=== PATIENT | male | born 1960 | race Caucasian/White ===

== ENCOUNTER → 2018-03-16 14:14 | Outpatient (CLI) | payer OTHER, MEDICAID, SELFPAY ==
[2018-03-16 18:06] LABS: Alanine Aminotransferase 26 IU/L (21-72); Albumin 3.8 g/dL (3.5-5.0); Albumin Globulin Ratio 1.7 (1.0-2.8); Alkaline Phosphatase 64 U/L (38-126); Aspartate Aminotransferase 21 IU/L (17-59); BUN Creatinine Ratio 21.4 (6-22); Bilirubin Total 0.6 mg/dL (0.2-1.3); Calcium 9.2 mg/dL (8.4-10.2); Estimated Glomerular Filt Rate > 60.0 mL/min (>60); Globulin 2.3 g/dL (1.7-4.1); Glucose 117 mg/dL (70-100); HEMOLYSIS 17 (0-50); Potassium 3.8 mmol/L (3.4-5.1); Sodium 145 mmol/L (137-145); Total Protein 6.1 g/dL (6.3-8.2)
[2018-03-18 13:43] LABS: Parathyroid Hormone Int 77 pg/mL (14-64)
== END ==
PROVIDERS: PCP Family Medicine; Visit Provider Otolaryngology
DX: E21.0 Primary hyperparathyroidism (principal)
CPT/HCPCS: 36415; 80053; 83970

== ENCOUNTER → 2018-10-05 08:24 | Outpatient (CLI) | payer OTHER, MEDICAID, SELFPAY ==
[2018-10-05 09:01] LABS: Add Manual Diff / Slide Review NO; Basophils Percent Auto 0.5 % (0-2); Eosinophils Percent Auto 1.5 % (2-4); Hemoglobin 14.3 g/dL (13.5-17.5); Lymphocytes Percent Auto 30.9 % (25-40); Mean Corpuscular Hemoglobin 30.6 PG (26-34); Mean Corpuscular Volume 89.9 fL (80-100); Monocytes Percent Auto 9.1 % (3-14); Neutrophils Absolute Auto 2300 /uL (3000-5900); Platelet Count 170 X10^3/uL (150-400); Red Blood Cell Count 4.67 X10^6/uL (4.5-5.9); Red Cell Distribution Width 13.3 % (11.6-14.8)
[2018-10-05 09:32] LABS: Alanine Aminotransferase 32 IU/L (21-72); Albumin 4.1 g/dL (3.5-5.0); Alkaline Phosphatase 55 U/L (38-126); Aspartate Aminotransferase 23 IU/L (17-59); BUN Creatinine Ratio 16.3 (6-22); Bilirubin Total 0.5 mg/dL (0.2-1.3); Blood Urea Nitrogen 13 mg/dL (9-20); Calcium 8.9 mg/dL (8.4-10.2); Carbon Dioxide 28 mmol/L (22-32); Chloride 106 mmol/L (98-107); Cholesterol 113 mg/dL (140-199); Estimated Glomerular Filt Rate > 60.0 mL/min (>60); Globulin 2.1 g/dL (1.7-4.1); Glucose 89 mg/dL (70-100); HDL Cholesterol 44 mg/dL (40-60); HEMOLYSIS < 15 (0-50); LDL Cholesterol Calculated 59 mg/dL (<100); Potassium 3.9 mmol/L (3.4-5.1); Sodium 144 mmol/L (137-145); Total Protein 6.2 g/dL (6.3-8.2); Triglycerides 50 mg/dL (35-150)
[2018-10-05 09:49] LABS: Free T4, Direct Thyroxine 1.51 ng/dL (0.78-2.19)
== END ==
PROVIDERS: PCP Internal Medicine; Visit Provider Internal Medicine
DX: E03.9 Hypothyroidism, unspecified (principal); E21.3 Hyperparathyroidism, unspecified; E78.2 Mixed hyperlipidemia; F41.9 Anxiety disorder, unspecified
CPT/HCPCS: 36415; 80053; 80061; 84439; 84443; 84481; 85025

== ENCOUNTER → 2020-09-20 09:55 | Outpatient (CLI) | payer OTHER, MEDICAID, SELFPAY ==
[2020-09-20 11:18] LABS: Alanine Aminotransferase 34 IU/L (<50); Albumin 4.3 g/dL (3.5-5.0); Albumin Globulin Ratio 1.8 (1.0-2.8); Alkaline Phosphatase 60 U/L (38-126); Aspartate Aminotransferase 30 IU/L (17-59); BUN Creatinine Ratio 14.6 (6-22); Bilirubin Total 0.6 mg/dL (0.2-1.3); Blood Urea Nitrogen 12 mg/dL (9-20); Calcium 9.3 mg/dL (8.4-10.2); Carbon Dioxide 30 mmol/L (22-32); Chloride 104 mmol/L (98-107); Cholesterol 146 mg/dL (140-199); Estimated Glomerular Filt Rate > 60.0 mL/min (>60); Globulin 2.4 g/dL (1.7-4.1); Glucose 92 mg/dL (80-110); HDL Cholesterol 47 mg/dL (40-60); HEMOLYSIS < 15 (0-50); LDL Cholesterol Calculated 71 mg/dL (<100); Potassium 4.6 mmol/L (3.4-5.1); Sodium 138 mmol/L (137-145); Total Protein 6.7 g/dL (6.3-8.2); Triglycerides 142 mg/dL (35-150)
[2020-09-20 11:45] LABS: Free T4, Direct Thyroxine 0.96 ng/dL (0.78-2.19)
[2020-09-20 11:46] LABS: Prostate Specific Antigen Scrn 0.514 ng/mL (0.1-4.0)
[2020-09-20 11:59] LABS: Thyroid Stimulating Hormone 2.57 uIU/mL (0.47-4.68)
== END ==
PROVIDERS: PCP Internal Medicine; Referring Provider Internal Medicine; Visit Provider Internal Medicine
DX: E03.9 Hypothyroidism, unspecified (principal); E21.3 Hyperparathyroidism, unspecified; E78.2 Mixed hyperlipidemia; E83.52 Hypercalcemia; Z12.5 Encounter for screening for malignant neoplasm of prostate
CPT/HCPCS: 36415; 80053; 80061; 84439; 84443; G0103

== ENCOUNTER → 2021-10-01 09:27 | Outpatient (CLI) | payer OTHER, MEDICAID, SELFPAY ==
--- NOTE | 2021-10-01 10:34 | DI.CT.S_ITS ---
PROCEDURE: CT SINUS SCREEN WO CON INDICATIONS: Chronic pansinusitis TECHNIQUE: Noncontrast 3.0 mm axial images acquired from the frontal sinuses to the mid-sella, with coronal and sagittal reformats. For radiation dose reduction, the following was used: automated exposure control, adjustment of mA and/or kV according to patient size. COMPARISON: [facility], CT, SINUS SCREEN WO CONTRAST, 08/23/2014, 8:07. FINDINGS: Image quality: Excellent. Sinuses: There is minimal bilateral maxillary sinus mucosal thickening. No fluid levels or mucous retention cyst versus polyps. It is overall relatively unchanged compared to 2013. Remaining sinuses are clear. Ostiomeatal Complexes: Ostiomeatal complexes are patent. No Med cells. Miscellaneous: Visualized intra-orbital contents are normal. No andi bullosa or paradoxical turbinate curvature. Mild leftward nasal septal deviation. IMPRESSION: 1. Stable appearance of minimal bilateral maxillary sinus mucosal thickening and patent ostiomeatal complexes. Dictated by: Sheba Hong M.D. on 10/01/2021 at 13:03 Approved by: Sheba Hong M.D. on 10/01/2021 at 14:13
== END ==
PROVIDERS: PCP Internal Medicine; Referring Provider Otolaryngology; Visit Provider Otolaryngology
DX: J32.4 Chronic pansinusitis (principal)
CPT/HCPCS: 70486

== ENCOUNTER → 2021-11-02 09:21 | Outpatient (CLI) | payer OTHER, MEDICAID, SELFPAY ==
[2021-11-02 12:26] LABS: COVID19 -Nasal RAPID Negative (Negative)
== END ==
PROVIDERS: PCP Internal Medicine; Visit Provider Nurse Practitioner Critical Care Medicine
DX: Z20.822 Contact with and (suspected) exposure to COVID-19 (principal); R06.00 Dyspnea, unspecified
CPT/HCPCS: 87635

== ENCOUNTER → 2021-11-08 14:27 | Outpatient (CLI) | payer OTHER, MEDICAID, SELFPAY ==
[2021-11-08 15:25] LABS: Alanine Aminotransferase 63 IU/L (<50); Albumin 4.4 g/dL (3.5-5.0); Alkaline Phosphatase 56 U/L (38-126); Aspartate Aminotransferase 32 IU/L (17-59); BUN Creatinine Ratio 16.5 (6-22); Bilirubin Total 0.4 mg/dL (0.2-1.3); Blood Urea Nitrogen 13 mg/dL (9-20); Calcium 9.6 mg/dL (8.4-10.2); Carbon Dioxide 28 mmol/L (22-32); Chloride 106 mmol/L (98-107); Estimated Glomerular Filt Rate > 60.0 mL/min (>60); Globulin 2.2 g/dL (1.7-4.1); Glucose 152 mg/dL (80-110); HEMOLYSIS < 15 (0-50); Potassium 3.7 mmol/L (3.4-5.1); Sodium 139 mmol/L (137-145); Total Protein 6.6 g/dL (6.3-8.2)
[2021-11-08 15:40] LABS: Free T4, Direct Thyroxine 1.01 ng/dL (0.78-2.19)
[2021-11-08 15:54] LABS: Thyroid Stimulating Hormone 1.47 uIU/mL (0.47-4.68)
== END ==
PROVIDERS: PCP Internal Medicine; Referring Provider Internal Medicine; Visit Provider Internal Medicine
DX: E03.9 Hypothyroidism, unspecified (principal); E21.3 Hyperparathyroidism, unspecified; E78.2 Mixed hyperlipidemia
CPT/HCPCS: 36415; 80053; 84439; 84443

== ENCOUNTER → 2022-06-10 09:00 | Outpatient (CLI) | payer OTHER, MEDICAID, SELFPAY ==
[2022-06-10 12:37] LABS: COVID19 -Nasal RAPID Negative (Negative)
--- NOTE | 2022-06-10 14:23 | P.PCN_ITS ---
Cardiac Stress Test Report Referral & Results Date Patient Seen: 06/10/22 Requesting provider: Farooq Bobo Indication: Chest pain almost status post workup in hospital in [place] with negative echo negative serial troponins etcetera. Fairly suspicious symptoms however. There was quite a pleuritic component to his chest pain however Rest ECG: Unremarkable Procedure Note: Today following both written and verbal informed consent the patient was exercised according to a standard Daniel protocol patient went for a total of 8 minutes 14 seconds achieving a maximum heart rate of 155 maximum systolic blood pressure of 170. This is approximately 10.1 METS. Exercise was terminated at this point because of inability the patient to continue in targets having been m et. Patient was also given Cardiolite through a previously started Hep-Lock IV by the diagnostic imaging staff approximately 1 minute prior to the cessation of exercise. There were no ST-T segment changes Normal heart rate and blood pressure response to exercise Function aerobic impairment rates-5% on the active scale No symptoms reported Impression: No evidence of ischemia based on usual ECG criteria No symptoms as well Await results of perfusion imaging as well Patient also requested to make appointment to see me in the office so we may review his presenting symptoms his overall workup to date etcetera since we as yet do not have an answer and based on above criteria very unlikely that perfusion imaging will show evidence of ischemia Please note: Actual ECG tracings can be found in the PACS system.
--- NOTE | 2022-06-10 19:29 | DI.NM.S_ITS ---
DATE OF SERVICE: 06/10/2022 PROCEDURE PERFORMED: Exercise perfusion study. INDICATION: Chest pain with underlying hyperlipidemia. RADIOPHARMACEUTICAL: 26.6 millicurie technetium-99m Myoview IV was injected at rest at stress and 12.2 millicurie technetium-99m Myoview IV was injected at rest. CARDIAC STRESS: The patient underwent exercise perfusion study under the supervision of an attending staff. The patient walked on Daniel protocol for 8 minutes and 14 seconds, achieved 99 percent of target heart rate. Baseline blood pressure 120/80 mmHg. Peak blood pressure 170/80 mmHg. Achieved 10.1 METs of workload and HALEY -5 percent. Baseline rhythm was sinus. During stress, no inducible ischemic changes or significant arrhythmias seen. No anginal symptoms. RAW DATA: Increased subdiaphragmatic activity. GATED STUDY: Resting LV ejection fraction 65 and stress LV ejection fraction 73 percent without any obvious wall motion abnormalities. Resting end-diastolic volume 99 mL. TID ratio 0.68, which is within normal limits. Lung/heart ratio 0.32, which is within normal limits. MYOCARDIAL PERFUSION SCAN: Stress supine and resting supine images showed small size, mildly decreased perfusion of inferior wall, as well as basal inferoseptum, which got completely resolved during stress prone images, suggestive of diaphragmatic tissue attenuation artifact. Stress prone images revealed normal myocardial perfusion. CONCLUSION: This is a normal myocardial perfusion study with evidence of diaphragmatic tissue attenuation artifact, which got resolved during stress prone images. Good exercise tolerance. HALEY -5 percent. Normal hemodynamic response. No inducible ischemic changes or anginal symptoms. Preserved left ventricular function. No significant arrhythmias. Overall low-risk exercise myocardial perfusion scan. Sudheer Vega - BENNETT/davida/corrina doc#: [id number]/job#: [id number] dd: 06/10/2022 16:57:00 dt: 06/10/2022 19:12:00 DICTATING MD/COPIES TO: Annika Bergeron MD COPIES MNE: DIEUDONNE;
== END ==
PROVIDERS: PCP Internal Medicine; Referring Provider Internal Medicine; Visit Provider Internal Medicine
DX: R07.9 Chest pain, unspecified (principal); E78.5 Hyperlipidemia, unspecified
CPT/HCPCS: 78452; 87635; 93016; 93017; 93018; A9502

== ENCOUNTER → 2022-06-14 11:04 | Outpatient (CLI) | payer OTHER, MEDICAID, SELFPAY ==
[2022-06-14 13:03] LABS: Alanine Aminotransferase 85 IU/L (<50); Albumin 4.2 g/dL (3.5-5.0); Alkaline Phosphatase 59 U/L (38-126); Aspartate Aminotransferase 52 IU/L (17-59); BUN Creatinine Ratio 17.1 (6-22); Bilirubin Total 0.5 mg/dL (0.2-1.3); Blood Urea Nitrogen 14 mg/dL (9-20); Calcium 9.2 mg/dL (8.4-10.2); Carbon Dioxide 25 mmol/L (22-32); Chloride 106 mmol/L (98-107); Estimated Glomerular Filt Rate > 60 mL/min (>60); Globulin 2.1 g/dL (1.7-4.1); Glucose 82 mg/dL (80-110); HEMOLYSIS < 15 (0-50); Sodium 140 mmol/L (137-145); Total Protein 6.3 g/dL (6.3-8.2)
[2022-06-14 13:18] LABS: Free T3, Triiodothyronine Free 2.88 pg/mL (2.77-5.27); Free T4, Direct Thyroxine 1.04 ng/dL (0.78-2.19)
== END ==
PROVIDERS: PCP Internal Medicine; Referring Provider Internal Medicine; Visit Provider Internal Medicine
DX: E03.9 Hypothyroidism, unspecified (principal); E78.2 Mixed hyperlipidemia
CPT/HCPCS: 36415; 80053; 84439; 84443; 84481

== ENCOUNTER → 2023-07-28 14:56 | Outpatient (CLI) | payer OTHER, SELFPAY ==
[2023-07-28 17:01] LABS: Alanine Aminotransferase 45 IU/L (<50); Albumin 4.3 g/dL (3.5-5.0); Albumin Globulin Ratio 1.7 (1.0-2.8); Alkaline Phosphatase 73 U/L (38-126); Aspartate Aminotransferase 29 IU/L (17-59); BUN Creatinine Ratio 13.4 (6-22); Bilirubin Total 0.7 mg/dL (0.2-1.3); Blood Urea Nitrogen 11 mg/dL (9-20); Calcium 9.6 mg/dL (8.4-10.2); Carbon Dioxide 26 mmol/L (22-32); Chloride 104 mmol/L (98-107); Cholesterol 184 mg/dL (140-199); Estimated Glomerular Filt Rate > 60 mL/min (>60); Globulin 2.6 g/dL (1.7-4.1); Glucose 81 mg/dL (80-110); HDL Cholesterol 43 mg/dL (40-60); HEMOLYSIS < 15 (0-50); LDL Cholesterol Calculated 115 mg/dL (<100); Potassium 3.8 mmol/L (3.4-5.1); Sodium 138 mmol/L (137-145); Total Protein 6.9 g/dL (6.3-8.2); Triglycerides 131 mg/dL (35-150)
[2023-07-28 17:20] LABS: Free T4, Direct Thyroxine 1.07 ng/dL (0.78-2.19)
[2023-07-28 17:30] LABS: Prostate Specific Antigen Scrn 0.443 ng/mL (0.1-4.0)
[2023-07-30 08:00] LABS: Parathyroid Hormone Int 76 pg/mL (15-65)
== END ==
PROVIDERS: PCP Internal Medicine; Referring Provider Internal Medicine; Visit Provider Internal Medicine
DX: E03.9 Hypothyroidism, unspecified (principal); E21.3 Hyperparathyroidism, unspecified; E78.2 Mixed hyperlipidemia; E83.52 Hypercalcemia; Z12.5 Encounter for screening for malignant neoplasm of prostate
CPT/HCPCS: 36415; 80053; 80061; 83970; 84439; 84443; G0103

== ENCOUNTER → 2024-09-10 10:10 | Outpatient (CLI) | payer MEDICARE, SELFPAY ==
[2024-09-10 11:04] LABS: Add Manual Diff / Slide Review NO; Basophils Absolute Auto 0 /uL (0-100); Basophils Percent Auto 0.7 % (0-2); Eosinophils Absolute Auto 100 /uL (0-450); Hematocrit 44.2 % (41-53); Hemoglobin 15.1 g/dL (13.5-17.5); Lymphocytes Absolute Auto 1500 /uL (1100-4500); Mean Corpuscular HGB Conc 34.3 % (30-36); Mean Corpuscular Hemoglobin 31.2 PG (26-34); Mean Corpuscular Volume 91.1 fL (80-100); Monocytes Absolute Auto 400 /uL (0-900); Monocytes Percent Auto 7.8 % (3-14); Neutrophils Absolute Auto 3300 /uL (1500-7000); Neutrophils Percent Auto 62.5 % (50-75); Platelet Count 179 X10^3/uL (150-400); Red Blood Cell Count 4.85 X10^6/uL (4.5-5.9); Red Cell Distribution Width 13.8 % (11.6-14.8); White Blood Cell Count 5.2 X10^3/uL (4.5-11.0)
[2024-09-10 11:34] LABS: Alanine Aminotransferase 47 IU/L (<50); Albumin 4.3 g/dL (3.5-5.0); Alkaline Phosphatase 77 U/L (38-126); Aspartate Aminotransferase 40 IU/L (17-59); BUN Creatinine Ratio 11.8 (6-22); Bilirubin Total 0.7 mg/dL (0.2-1.3); Blood Urea Nitrogen 9 mg/dL (9-20); Calcium 9.7 mg/dL (8.4-10.2); Carbon Dioxide 27 mmol/L (22-32); Chloride 107 mmol/L (98-107); Cholesterol 140 mg/dL (140-199); Creatine Kinase 86 U/L (55-170); Estimated Glomerular Filt Rate > 60 mL/min (>60); Globulin 2.1 g/dL (1.7-4.1); Glucose 95 mg/dL (80-110); HDL Cholesterol 50 mg/dL (40-60); HEMOLYSIS < 15 (0-50); LDL Cholesterol Calculated 63 mg/dL (<100); Potassium 4.8 mmol/L (3.4-5.1); Sodium 140 mmol/L (137-145); Total Protein 6.4 g/dL (6.3-8.2); Triglycerides 137 mg/dL (35-150)
[2024-09-10 11:47] LABS: Free T3, Triiodothyronine Free 3.04 pg/mL (2.77-5.27); Free T4, Direct Thyroxine 1.11 ng/dL (0.78-2.19)
[2024-09-10 12:01] LABS: Prostate Specific Antigen Scrn 0.459 ng/mL (0.1-4.0); Thyroid Stimulating Hormone 0.561 uIU/mL (0.47-4.68)
[2024-09-11 09:36] LABS: Calcium 9.6 mg/dL (8.6-10.2); Parathyroid Hormone, Intact 69 pg/mL (15-65)
== END ==
PROVIDERS: PCP Internal Medicine; Referring Provider Internal Medicine; Visit Provider Internal Medicine
DX: E03.9 Hypothyroidism, unspecified (principal); Z12.5 Encounter for screening for malignant neoplasm of prostate; E78.2 Mixed hyperlipidemia; E21.3 Hyperparathyroidism, unspecified; E83.52 Hypercalcemia; D64.9 Anemia, unspecified; E29.1 Testicular hypofunction; M79.10 Myalgia, unspecified site
CPT/HCPCS: 36415; 80053; 80061; 82310; 82550; 83970; 84402; 84403; 84439; 84443; 84481; 85025; G0103

== ENCOUNTER → 2025-09-27 09:51 | Outpatient (CLI) | payer MEDICARE, SELFPAY ==
[2025-09-27 11:27] LABS: Alanine Aminotransferase 58 IU/L (<50); Albumin 4.3 g/dL (3.5-5.0); Albumin Globulin Ratio 2.0 (1.0-2.8); Alkaline Phosphatase 66 U/L (38-126); Blood Urea Nitrogen 13 mg/dL (9-20); Calcium 9.7 mg/dL (8.4-10.2); Carbon Dioxide 27 mmol/L (22-32); Chloride 106 mmol/L (98-107); Cholesterol 138 mg/dL (140-199); Estimated Glomerular Filt Rate > 60 mL/min (>60); Globulin 2.2 g/dL (1.7-4.1); Glucose 95 mg/dL (70-99); HDL Cholesterol 46 mg/dL (40-60); HEMOLYSIS < 15 (0-50); Potassium 4.1 mmol/L (3.4-5.1); Sodium 141 mmol/L (137-145); Total Protein 6.5 g/dL (6.3-8.2); Triglycerides 109 mg/dL (35-150)
[2025-09-27 11:50] LABS: Free T4, Direct Thyroxine 1.31 ng/dL (0.78-2.19)
[2025-09-27 12:04] LABS: Thyroid Stimulating Hormone 0.645 uIU/mL (0.47-4.68)
== END ==
PROVIDERS: PCP Internal Medicine; Referring Provider Internal Medicine; Visit Provider Internal Medicine
DX: Z12.5 Encounter for screening for malignant neoplasm of prostate (principal); E78.2 Mixed hyperlipidemia; E03.9 Hypothyroidism, unspecified; E21.3 Hyperparathyroidism, unspecified
CPT/HCPCS: 36415; 80053; 80061; 82310; 83970; 84439; 84443; G0103